=== PATIENT | female | born 1970 | race Caucasian/White ===

== ENCOUNTER → 2023-03-31 | Emergency (ER) | payer SELFPAY ==
[~2023-03-31] MED LIST: NA CHLORIDE 0.9% 2,000 ML ONE
[2023-03-31 13:12] LABS: Absolute Lymphocytes (CBC) 1.5 K/uL (0.7-4.9); Hematocrit 40.1 % (36.0-45.0); Lymphocytes % 31.5 % (15.3-44.8); MCV 104.8 fL (80-100); MPV 8.1 fL (7.6-11.3); Platelets 255 thou/uL (152-406); RBC Red Blood Cell Count 3.82 M/uL (3.86-4.86)
[2023-03-31 13:44] LABS: Bilirubin Total 0.3 mg/dL (0.2-1.0); Potassium 4.3 mEq/L (3.5-5.1); Protein, Total 5.9 g/dL (6.4-8.2); Troponin High Sensitivity 3.9 pg/mL (<58.9)
--- NOTE | 2023-03-31 14:42 | ER ---
Nurse's Notes [facility] Name: Alize Barber Age: 53 yrs Sex: Female : 1970 Arrival Date: 03/31/2023 Time: 12:07 Bed 3 Private MD: Diagnosis: Hyperglycemia, unspecified Presentation: 03/31 12:36 Chief complaint: Patient states: Blood sugars 500's this morning, 400's this afternoon. ll1 No N/V/D. No fever or cough. Coronavirus screen: Client denies travel out of the [place] in the last 14 days. At this time, the client does not indicate any symptoms associated with coronavirus-19. Ebola Screen: Patient denies travel to an Ebola-affected area in the 21 days before illness onset. Initial Sepsis Screen: Does the patient meet any 2 criteria? No. Patient's initial sepsis screen is negative. Does the patient have a suspected source of infection? No. Patient's initial sepsis screen is negative. Risk Assessment: Do you want to hurt yourself or someone else? Patient reports no desire to harm self or others. Onset of symptoms was March 31, 2023. 12:36 Method Of Arrival: Ambulatory ll1 12:36 Acuity: DANO 3 ll1 Historical: - Allergies: 12:39 Codeine; ll1 - PMHx: 12:39 Diabetes mellitus; ll1 - Immunization history:: Adult Immunizations up to date. - Social history:: Smoking status: Patient reports the use of cigarette tobacco products, smokes one-half pack cigarettes per day. Screenin:[address] [facility] ED Fall Risk Assessment (Adult) History of falling in the last 3 months, kc6 including since admission No falls in past 3 months (0 pts) Confusion or Disorientation No (0 pts) Intoxicated or Sedated No (0 pts) Impaired Gait No (0 pts) Mobility Assist Device Used No (0 pt) Altered Elimination No (0 pt) Score/Fall Risk Level 0 - 2 = Low Risk. Abuse screen: Denies threats or abuse. Denies injuries from another. Nutritional screening: No deficits noted. Tuberculosis screening: No symptoms or risk factors identified. Assessment: 12:40 General: Appears uncomfortable, Behavior is calm, cooperative, appropriate for age. ll1 General: Reports high blood sugar. Pain: Denies pain. Respiratory: Reports cough that is. 14:50 Reassessment: Patient appears in no apparent distress at this time. No changes from ld1 previously documented assessment. Patient and/or family updated on plan of care and expected duration. Pain level reassessed. Patient is alert, oriented x 3, equal unlabored respirations, skin warm/dry/pink. Vital Signs: 12:36 BP 134 / 75; Pulse 94; Resp 18; Temp 97.6; Pulse Ox 97% ; Weight 58.97 kg; Height 5 ft. ll1 3 in. ; Pain 0/10; 14:50 BP 121 / 67; Pulse 84; Resp 18; Pulse Ox 100% on R/A; ld1 12:36 Body Mass Index 23.03 (58.97 kg, 160.02 cm) ll1 12:36 Pain Scale: Adult ll1 ED Course: 12:09 Patient arrived in ED. mr 12:12 Dano Rodriguez MD is Attending Physician. ec2 12:39 Triage completed. ll1 12:39 Arm band placed on. ll1 12:50 Estephania Noland, YESENIA is Primary Nurse. kc6 13:15 Missed attempt(s): 22 gauge in right antecubital area. Missed attempt(s): 20 gauge in kc6 left antecubital area. Patient maintains SpO2 saturation greater than 95% on room air. 13:23 Inserted saline lock: 20 gauge in right forearm, using aseptic technique. Blood ld1 collected. Missed attempt(s): 20 gauge in right antecubital area. 14:42 Ernesto Salvador DO is Referral Physician. ec2 14:50 No provider procedures requiring assistance completed. IV discontinued, intact, ld1 bleeding controlled, No redness/swelling at site. 14:51 Patient has correct armband on for positive identification. Placed in gown. Bed in low ld1 position. Call light in reach. Side rails up X2. Pulse ox on. NIBP on. Door closed. Noise minimized. Warm blanket given. Administered Medications: 13:24 Drug: NS 0.9% IV 2000 ml IV at 1 bolus Per protocol; 1000 mL bolus Route: IV; Rate: 1 kc6 bolus; Site: right forearm; Medication: 14:51 VIS not applicable for this client. ld1 Outcome: 14:42 Discharge ordered by . ec2 14:50 Discharged to home ambulatory, ld1 14:50 Condition: stable 14:50 Discharge instructions given to patient, Instructed on discharge instructions, follow up and referral plans. Demonstrated understanding of instructions, follow-up care, 14:51 Patient left the ED. ld1 Signatures: Veronica Clarke, Reg Reg Magalie Blunt, RN RN ll1 Elizabeth Carbajal RN RN ld1 Estephania Noland RN RN kc6 Dano Rodriguez MD MD ec2 Corrections: (The following items were deleted from the chart) 12:51 12:36 Acuity: DANO 2 ll1 ll1
--- NOTE | 2023-03-31 14:43 | EDPHYS ---
Physician Documentation [facility] Name: Alize Barber Age: 53 yrs Sex: Female : 1970 Arrival Date: 03/31/2023 Time: 12:07 Bed 3 Private MD: ED Physician Dano Rodriguez HPI: 03/31 12:40 This 53 yrs old Female presents to ER via Ambulatory with complaints of High ec2 Blood Sugar. 12:40 Patient arrives today for evaluation of elevated blood sugars. Patient reportedly has ec2 been having sugars in the 4-5 100s. Reports no fevers or chills, no nausea or vomiting, no urinary complaints.. Historical: - Allergies: 12:39 Codeine; ll1 - PMHx: 12:39 Diabetes mellitus; ll1 - Immunization history:: Adult Immunizations up to date. - Social history:: Smoking status: Patient reports the use of cigarette tobacco products, smokes one-half pack cigarettes per day. ROS: 12:40 Constitutional: as per hpi ec2 Exam: 12:40 Constitutional: GEN: NAD Head: atraumatic Eyes: EOMI Ears: External ears are ec2 normal. CV: regular rate LUNGS: no respiratory distress ABD: non-distended SKIN: no evidence of rashes MSK: no evidence of trauma NEURO: moves all extremities equally Vital Signs: 12:36 BP 134 / 75; Pulse 94; Resp 18; Temp 97.6; Pulse Ox 97% ; Weight 58.97 kg; Height 5 ft. ll1 3 in. ; Pain 0/10; 14:50 BP 121 / 67; Pulse 84; Resp 18; Pulse Ox 100% on R/A; ld1 12:36 Body Mass Index 23.03 (58.97 kg, 160.02 cm) ll1 12:36 Pain Scale: Adult ll1 MDM: 12:40 Patient medically screened. ec2 12:40 Data reviewed: vital signs. ED course: Today for evaluation of elevated blood sugars. ec2 Examination remarkable for well-appearing nontoxic dividual is otherwise in no acute distress. Will obtain lab work, urine studies. Evaluating for causes of hyperglycemia, renal dysfunction, low suspicion for UTI, low suspicion for ACS. Will give the patient crystalloid, will defer any insulin management at this time.. 13:02 ED course: EKG independently reviewed and interpreted by me, shows normal sinus rhythm, ec2 rate of 85, no acute ST segment elevations, nonconcerning intervals.. 13:28 ED course: CBC reassuring, sugar at 294. . ec2 14:01 ED course: Metabolic profile without anion gap elevation, glucose elevated at 245. ec2 Troponin within normal ranges. . 14:01 ED course: On reassessment patient is well-appearing in no acute distress. Will ec2 discharge home and have follow-up with primary care doctor, instructed her on dietary modifications and importance of follow-up with primary care doctor to discuss further diabetic management.. 02 12:40 Order name: CBC with Diff; Complete Time: 13:28 ec2 03/31 12:40 Order name: CMP; Complete Time: 14: ec2 03/31 12:40 Order name: Troponin High Sensitivity; Complete Time: 14: ec2 03/31 12:53 Order name: Glucose, Ancillary Testing; Complete Time: 13:28 EDMS 03/31 12:40 Order name: EKG - Nurse/Tech; Complete Time: 13:15 ec2 03/31 13:16 Order name: Labs - recollect needed: light green; Complete Time: 13:22 bc6 Administered Medications: 13:24 Drug: NS 0.9% IV 2000 ml IV at 1 bolus Per protocol; 1000 mL bolus Route: IV; Rate: 1 kc6 bolus; Site: right forearm; Disposition Summary: 03/31/23 14:42 Discharge Ordered Notes: Location: Home ec2 Condition: Stable ec2 Diagnosis - Hyperglycemia, unspecified ec2 Followup: ec2 - With: Ernesto Salvador DO - When: - Reason: Recheck today's complaints Discharge Instructions: - Discharge Summary Sheet ec2 - Hyperglycemia ec2 Forms: - Medication Reconciliation Form ec2 - Thank You Letter ec2 - Antibiotic Education ec2 - Prescription Opioid Use ec2 - Patient Portal Instructions ec2 - Leadership Thank You Letter ec2 Signatures: Dispatcher [employer] Magalie Ponce RN RN ll1 Estephania Noland RN RN kc6 Monique Mcguire 6 Dano Rodriguez MD MD ec2
[2023-03-31 15:08] VITALS: BP 121/67; TEMP 97.6; O2SAT 100
--- NOTE | 2023-04-04 11:07 | EKG ---
Test Date: 2023-03-31 Test Time: 12:58:37 Clerk Guide: R[place]T MEASUREMENT RESULTS: Intervals: Rate: 85 CT: 136 QRSD: 82 QT: 360 QTc: 428 [place]: P: 75 CT: 136 QRS: 80 T: 74 INTERPRETIVE STATEMENTS: Normal sinus rhythm Normal ECG No previous ECG available for comparison Electronically Signed On 04-04-23 11:00:45 BARBECUE COOK by Kemal Singh
== END ==
LOC: ER 12:07
DX: E11.65 Type 2 diabetes mellitus with hyperglycemia (principal); F17.210 Nicotine dependence, cigarettes, uncomplicated; Z88.5 Allergy status to narcotic agent
CPT/HCPCS: 36415; 80053; 82947; 84484; 85025; 93005; 99285; J7030

== ENCOUNTER → 2023-04-12 | Emergency (ER) | payer SELFPAY ==
--- NOTE | 2023-04-12 15:31 | ER ---
Nurse's Notes [facility] Name: Alize Barber Age: 53 yrs Sex: Female : 1970 Arrival Date: 04/12/2023 Time: 14:29 Bed 12 Private MD: Diagnosis: Hypoglycemia Presentation: 04/12 14:39 Chief complaint: EMS states: her BS was 18 on scene. they gave her 2 oral glucose, BS iw up to 89 now, she started taking Humulin 70/30 along with Novolog pen with meals which she thinks is too strong for her. 14:41 Coronavirus screen: At this time, the client does not indicate any symptoms associated iw with coronavirus-19. Ebola Screen: Patient negative for fever greater than or equal to 101.5 degrees Fahrenheit, and additional compatible Ebola Virus Disease symptoms Patient denies exposure to infectious person. Patient denies travel to an Ebola-affected area in the 21 days before illness onset. No symptoms or risks identified at this time. Initial Sepsis Screen: Does the patient meet any 2 criteria? No. Patient's initial sepsis screen is negative. Does the patient have a suspected source of infection? No. Patient's initial sepsis screen is negative. Risk Assessment: Do you want to hurt yourself or someone else? Patient reports no desire to harm self or others. Onset of symptoms was April 12, 2023. 14:41 Method Of Arrival: EMS: [facility] iw 14:42 Acuity: DANO 4 iw Historical: - Allergies: 14:41 Codeine; iw - PMHx: 14:41 diabetes mellitus; iw - Immunization history:: Adult Immunizations up to date. - Social history:: Smoking status: unknown. Screenin:33 [facility] ED Fall Risk Assessment (Adult) History of falling in the last 3 months, cm10 including since admission No falls in past 3 months (0 pts) Confusion or Disorientation No (0 pts) Intoxicated or Sedated No (0 pts) Impaired Gait No (0 pts) Mobility Assist Device Used No (0 pt) Altered Elimination No (0 pt) Score/Fall Risk Level 0 - 2 = Low Risk Oriented to surroundings, Maintained a safe environment, Hourly rounding (assess needs \T\ fall precautionary measures) done. Abuse screen: Denies threats or abuse. Denies injuries from another. Nutritional screening: No deficits noted. Tuberculosis screening: No symptoms or risk factors identified. Assessment: 15:15 Reassessment: Pt provided with sandwich. cm10 15:33 General: Appears in no apparent distress. comfortable, Behavior is calm, cooperative. cm10 Pain: Denies pain. Neuro: No deficits noted. Level of Consciousness is awake, alert, obeys commands, Oriented to person, place, time, situation. Cardiovascular: No deficits noted. Capillary refill < 3 seconds Patient's skin is warm and dry. Respiratory: No deficits noted. Airway is patent Respiratory effort is even, unlabored, Respiratory pattern is regular, symmetrical. Musculoskeletal: No deficits noted. Range of motion: intact in all extremities. Vital Signs: 14:41 BP 129 / 76; Pulse 61; Resp 16; Temp 98.1; Pulse Ox 100% on R/A; iw ED Course: 14:35 Patient arrived in ED. ap3 14:36 Carmelo Salvador MD is Attending Physician. sp3 14:41 Arm band placed on. iw 14:42 Triage completed. iw 14:51 Cassie Baker, RN is Primary Nurse. cm10 15:33 Patient has correct armband on for positive identification. Call light in reach. Side cm10 rails up X 1. Provided Education on: Follow-up instructions. 15:34 No provider procedures requiring assistance completed. Patient did not have IV access cm10 during this emergency room visit. Administered Medications: No medications were administered Medication: 15:33 VIS not applicable for this client. cm10 Point of Care Testing: Blood Glucose: 15:24 Blood Glucose: 89 mg/dL; cm10 Ranges: Outcome: 15:31 Discharge ordered by . sp3 15:34 Discharged to home ambulatory, cm10 15:34 Condition: good 15:34 Discharge instructions given to patient, Instructed on discharge instructions, follow up and referral plans. Demonstrated understanding of instructions, follow-up care, 15:37 Patient left the ED. cm10 Signatures: Sayra Butler RN YESENIA Olesya Grant RN RN ap3 Carmelo Salvador MD MD sp3 Cassie Baker RN RN cm10 Corrections: (The following items were deleted from the chart) 15:34 15:33 General: Appears in no apparent distress. comfortable, Behavior is calm, cm10 cooperative, cm10
--- NOTE | 2023-04-12 15:32 | EDPHYS ---
Physician Documentation [facility] Name: Alize Barber Age: 53 yrs Sex: Female : 1970 Arrival Date: 04/12/2023 Time: 14:29 Bed 12 Private MD: ED Physician Carmelo Salvador HPI: 04/12 14:56 This 53 yrs old Female presents to ER via EMS with complaints of Low Blood Sugar. sp3 14:56 53-year-old female with a history of type 1 diabetes longstanding who takes injected sp3 insulin is brought to the ED via EMS for hypoglycemic episode. Patient is currently in a drug treatment facility but she was leaving due to "them not knowing how to treat her and treat diabetes at the same time". Patient also states that she had decreased p.o. intake and still took her insulin. EMS found patient to have a blood sugar of 16 and after glucose administration it went to 89. Patient has no complaints whatsoever and feels back to her baseline at this time. Review of systems otherwise negative.. Historical: - Allergies: 14:41 Codeine; iw - PMHx: 14:41 diabetes mellitus; iw - Immunization history:: Adult Immunizations up to date. - Social history:: Smoking status: unknown. ROS: 14:57 Constitutional: Negative for fever, chills, and weight loss, Eyes: Negative for injury, sp3 pain, redness, and discharge, ENT: Negative for injury, pain, and discharge, Neck: Negative for injury, pain, and swelling, Cardiovascular: Negative for chest pain, palpitations, and edema, Respiratory: Negative for shortness of breath, cough, wheezing, and pleuritic chest pain, Abdomen/GI: Negative for abdominal pain, nausea, vomiting, diarrhea, and constipation, Back: Negative for injury and pain, MS/Extremity: Negative for injury and deformity, Skin: Negative for injury, rash, and discoloration, Psych: Negative for depression, anxiety, suicide ideation, homicidal ideation, and hallucinations, Allergy/Immunology: Negative for hives, rash, and allergies, Hematologic/Lymphatic: Negative for swollen nodes, abnormal bleeding, and unusual bruising, 14:57 All other systems are negative, Exam: 14:57 Constitutional: This is a well developed, well nourished patient who is awake, alert, sp3 and in no acute distress. Head/Face: Normocephalic, atraumatic. Eyes: Pupils equal round and reactive to light, extra-ocular motions intact. Lids and lashes normal. Conjunctiva and sclera are non-icteric and not injected. Cornea within normal limits. Periorbital areas with no swelling, redness, or edema. ENT: Nares patent. No nasal discharge, no septal abnormalities noted. External auditory canals are clear. Oropharynx with no redness, swelling, or masses, exudates, or evidence of obstruction, uvula midline. Mucous membranes moist. Neck: Trachea midline, no thyromegaly or masses palpated, and no cervical lymphadenopathy. Supple, full range of motion without nuchal rigidity, or vertebral point tenderness. No Meningismus. Chest/axilla: Normal chest wall appearance and motion. Nontender with no deformity. No lesions are appreciated. Cardiovascular: Regular rate and rhythm with a normal S1 and S2. No gallops, murmurs, or rubs. Normal PMI, no JVD. No pulse deficits. Respiratory: Lungs have equal breath sounds bilaterally, clear to auscultation and percussion. No rales, rhonchi or wheezes noted. No increased work of breathing, no retractions or nasal flaring. Abdomen/GI: Soft, non-tender, with normal bowel sounds. No distension or tympany. No guarding or rebound. No evidence of tenderness throughout. Back: No spinal tenderness. No costovertebral tenderness. Full range of motion. Skin: Warm, dry with normal turgor. Normal color with no rashes, no lesions, and no evidence of cellulitis. MS/ Extremity: Pulses equal, no cyanosis. Neurovascular intact. Full, normal range of motion. Neuro: Awake and alert, GCS 15, oriented to person, place, time, and situation. Cranial nerves II-XII grossly intact. Motor strength 5/5 in all extremities. Sensory grossly intact. Cerebellar exam normal. Normal gait. Psych: Awake, alert, with orientation to person, place and time. Behavior, mood, and affect are within normal limits. Vital Signs: 14:41 BP 129 / 76; Pulse 61; Resp 16; Temp 98.1; Pulse Ox 100% on R/A; iw MDM: 14:36 Patient medically screened. sp3 14:58 Data reviewed: vital signs, nurses notes, EMS record, lab test result(s). ED course: sp3 53-year-old female with type 1 diabetes and hypoglycemic episode now fully resolved. Etiology of episode is clear and it is due to decreased p.o. intake. We will hold patient in the ED for 30 more minutes and check blood sugar. If study we will safely discharged home with her sister who is picking her up. Patient is very comfortable using and administering insulin and states that she will monitor her p.o. intake better.. 15:31 ED course: Blood sugar remains at 89 and patient is also eating. We will safely sp3 discharge her at this time.. 04/12 15:35 Order name: Glucose, Ancillary Testing EDMS 04/12 14:36 Order name: Accucheck: At 315 PM; Complete Time: 15:24 sp3 Administered Medications: No medications were administered Point of Care Testing: Blood Glucose: 15:24 Blood Glucose: 89 mg/dL; cm10 Ranges: Critical Glucose Levels:Adult <50 mg/dl or >400 mg/dl <40 mg/dl or >180 mg/dl Disposition Summary: 04/12/23 15:31 Discharge Ordered Notes: Location: Home sp3 Condition: Stable sp3 Diagnosis - Hypoglycemia sp3 Followup: sp3 - With: Private Physician - When: Upon discharge from the Emergency Department - Reason: Continuance of care Discharge Instructions: - Discharge Summary Sheet sp3 - Hypoglycemia sp3 - Preventing Hypoglycemia sp3 Forms: - Medication Reconciliation Form sp3 - Thank You Letter sp3 - Antibiotic Education sp3 - Prescription Opioid Use sp3 - Patient Portal Instructions sp3 - Leadership Thank You Letter sp3 Signatures: Sayra Butler, RN RN Carmelo Salvador MD MD sp3 Cassie Baker RN RN cm10
[2023-04-12 15:50] VITALS: BP 129/76; TEMP 98.1; O2SAT 100
== END ==
LOC: ER 14:29
DX: E11.649 Type 2 diabetes mellitus with hypoglycemia without coma (principal); Z88.5 Allergy status to narcotic agent
CPT/HCPCS: 82947